=== PATIENT | male | born 1945 | race Caucasian/White ===

== ENCOUNTER 2020-08-29 05:26 | Emergency (ER) | payer MEDICARE ==
[~2020-08-29] VITALS: Ht 180.3 cm; Wt 84.4 kg
== END 2020-08-29 05:41 | disposition home or self-care (01) ==
LOC: ER 05:26
DX: S00.412A Abrasion of left ear, initial encounter (principal); I10 Essential (primary) hypertension; Z88.8 Allergy status to other drugs, medicaments and biological substances; Z88.0 Allergy status to penicillin; W45.8XXA Other foreign body or object entering through skin, initial encounter; Y93.H2 Activity, gardening and landscaping
CPT/HCPCS: 99282

== ENCOUNTER 2021-07-16 12:54 | Emergency (ER) | payer MEDICARE ==
[~2021-07-16] VITALS: Ht 180.3 cm; Wt 79.4 kg
[2021-07-16] MEDS ORDERED: LIDO700A20 TOP (15:40)
[2021-07-16] MEDS ORDERED: IBUP800 PO (15:40)
[2021-07-16] MEDS ORDERED: Robaxin750 MG PO (15:40)
[2021-07-16] MEDS ORDERED: Acetaminophen500 MG PO (15:40)
[2021-07-16] MEDS ORDERED: CELEBREX200 MG PO (15:56)
[2021-07-16] MEDS ORDERED: OMEPRAZOLE CAP 20M (15:57)
[2021-07-16] MEDS ORDERED: Simvastatin10 MG PO (15:57)
[2021-07-16] MEDS ORDERED: OMEGA-3 FISH O1 EA13 PO (15:57)
== END 2021-07-16 15:59 | disposition home or self-care (01) ==
LOC: ER 12:54
DX: M75.42 Impingement syndrome of left shoulder (principal); M19.012 Primary osteoarthritis, left shoulder; I10 Essential (primary) hypertension; Z88.0 Allergy status to penicillin; Z88.8 Allergy status to other drugs, medicaments and biological substances
CPT/HCPCS: 73030; 96372; 99283-25; A9270; J1885

== ENCOUNTER 2025-01-17 12:03 | Emergency (ER) | payer MEDICARE ==
[~2025-01-17] VITALS: Ht 180.3 cm; Wt 83.9 kg
[~2025-01-17 12:03] MED LIST: ACET325 PO; ASPI81CH PO; ATOR80 PO; Acetaminophen500 MG PO; CARV25 PO; CELEBREX200 MG PO; IBUP800 PO; LIDO700A20 TOP; NITR.4SL SL; OMEGA-3 FISH O1 EAC6 PO; OMEP20ER PO; Prinivil10 MG PO; Robaxin750 MG PO; TICA90TA PO
[2025-01-17 12:31] LABS: BASOPHILS ABSOLUTE AUTO 0.05 K/mm3 (0.00-0.23); BASOPHILS PERCENT AUTO 0 % (0-2); EOSINOPHILS ABSOLUTE AUTO 0.03 K/mm3 (0.00-0.68); EOSINOPHILS PERCENT AUTO 0 % (0-6); Hematocrit 34.9 % (37.0-53.0); Hemoglobin 12.1 g/dL (13.5-17.5); IMMATURE GRAN ABSOLUTE AUTO 0.06 K/mm3 (0.00-0.10); IMMATURE GRAN PERCENT AUTO 1 % (0-1); LYMPHOCYTES ABSOLUTE AUTO 0.89 K/mm3 (0.84-5.20); LYMPHOCYTES PERCENT AUTO 7 % (21-46); MONOCYTES ABSOLUTE AUTO 1.69 K/mm3 (0.16-1.47); MONOCYTES PERCENT AUTO 13 % (4-13); Mean Corpuscular HGB 30.9 pg (26.0-34.0); Mean Corpuscular HGB Conc 34.7 g/dL (31.5-36.5); Mean Corpuscular Volume 89 fL (80-100); NEUTROPHILS PERCENT AUTO 78 % (41-73); Platelet Count 554 K/mm3 (150-400); RDW Coefficient Variation 12.3 % (11.7-14.2); Red Blood Cell Count 3.92 M/mm3 (4.30-5.90); White Blood Cell Count 12.62 K/mm3 (4.00-11.30)
[2025-01-17 13:00] LABS: Albumin, Blood 2.8 g/dL (3.4-5.0); Albumin/Globulin Ratio 0.7 (0.8-1.8); Bilirubin, Total 0.9 mg/dL (0.1-1.0); Calcium, Blood 9.1 mg/dL (8.5-10.1); Creatinine, Blood 0.84 mg/dL (0.60-1.20); Potassium, Blood 3.8 mmol/L (3.5-5.5); Total Protein, Blood 6.8 g/dL (6.4-8.2)
[2025-01-17] MEDS ORDERED: FURO20 PO (17:44)
[2025-01-17] MEDS ORDERED: Furosemide 10 MG / ML 2ML Vial IV ONE (17:45)
[2025-01-17 18:02] VITALS: BP 136/90
== END 2025-01-17 18:03 | disposition home or self-care (01) ==
LOC: ER 12:03
PROVIDERS: Emergency Medicine
DX: R07.9 Chest pain, unspecified (principal); R06.00 Dyspnea, unspecified; I10 Essential (primary) hypertension; E78.5 Hyperlipidemia, unspecified; I25.2 Old myocardial infarction; Z85.46 Personal history of malignant neoplasm of prostate; Z87.891 Personal history of nicotine dependence; Z88.0 Allergy status to penicillin; Z88.8 Allergy status to other drugs, medicaments and biological substances; Z79.82 Long term (current) use of aspirin; Z79.899 Other long term (current) drug therapy
CPT/HCPCS: 71046; 80053; 84484; 85025; 93005; 93010; 96374; 99285-25; J1940

== ENCOUNTER 2025-02-20 03:58 | Emergency (ER) | payer MEDICARE ==
[~2025-02-20] VITALS: Ht 180.3 cm; Wt 86.2 kg
[~2025-02-20 03:58] MED LIST changes: +FURO20 PO
[2025-02-20] MEDS ORDERED: Aspirin 81 MG Chew PO ONE (04:30)
[2025-02-20 04:39] LABS: BASOPHILS ABSOLUTE AUTO 0.04 K/mm3 (0.00-0.23); BASOPHILS PERCENT AUTO 1 % (0-2); EOSINOPHILS ABSOLUTE AUTO 0.12 K/mm3 (0.00-0.68); EOSINOPHILS PERCENT AUTO 1 % (0-6); Hematocrit 41.8 % (37.0-53.0); Hemoglobin 14.1 g/dL (13.5-17.5); IMMATURE GRAN ABSOLUTE AUTO 0.07 K/mm3 (0.00-0.10); IMMATURE GRAN PERCENT AUTO 1 % (0-1); LYMPHOCYTES ABSOLUTE AUTO 0.51 K/mm3 (0.84-5.20); LYMPHOCYTES PERCENT AUTO 6 % (21-46); MONOCYTES ABSOLUTE AUTO 0.77 K/mm3 (0.16-1.47); MONOCYTES PERCENT AUTO 9 % (4-13); Mean Corpuscular HGB 29.7 pg (26.0-34.0); Mean Corpuscular HGB Conc 33.7 g/dL (31.5-36.5); Mean Corpuscular Volume 88 fL (80-100); Mean Platelet Volume 8.6 fL (9.1-12.4); NEUTROPHILS ABSOLUTE AUTO 7.14 K/mm3 (1.96-9.15); NEUTROPHILS PERCENT AUTO 83 % (41-73); Platelet Count 296 K/mm3 (150-400); RDW Coefficient Variation 14.9 % (11.7-14.2); RDW Standard Deviation 48.5 fL (35.1-46.3); Red Blood Cell Count 4.74 M/mm3 (4.30-5.90); White Blood Cell Count 8.65 K/mm3 (4.00-11.30)
[2025-02-20 04:58] LABS: Albumin, Blood 3.7 g/dL (3.4-5.0); Albumin/Globulin Ratio 0.9 (0.8-1.8); Bun/Creatinine Ratio 27.7 (12.0-20.0); Creatinine, Blood 0.79 mg/dL (0.60-1.20); Globulin, Blood 3.9 g/dL (2.2-4.0); Potassium, Blood 3.5 mmol/L (3.5-5.5); Total Protein, Blood 7.6 g/dL (6.4-8.2)
[2025-02-20 05:09] LABS: Prothrombin Time Results 10.7 Sec (9.7-11.5)
[2025-02-20] MEDS ORDERED: Ondansetron HCl 2 MG / ML 2ML Vial IV ONE (06:55)
[2025-02-20] MEDS ORDERED: Morphine Sulfate 4 MG/1 ML Injection IV ONE (06:55)
[2025-02-20 13:55] VITALS: BP 139/81
== END 2025-02-20 14:01 | disposition home or self-care (01) ==
LOC: ER 03:58
PROVIDERS: Student in an Organized Health Care Education/Training Program
DX: R07.89 Other chest pain (principal); R79.89 Other specified abnormal findings of blood chemistry; R10.13 Epigastric pain; I10 Essential (primary) hypertension; E78.5 Hyperlipidemia, unspecified; K21.9 Gastro-esophageal reflux disease without esophagitis; I25.2 Old myocardial infarction; Z95.5 Presence of coronary angioplasty implant and graft; Z87.891 Personal history of nicotine dependence; Z88.0 Allergy status to penicillin; Z88.8 Allergy status to other drugs, medicaments and biological substances; Z79.82 Long term (current) use of aspirin; Z79.899 Other long term (current) drug therapy; Z59.89 Other problems related to housing and economic circumstances
CPT/HCPCS: 71045; 74177; 74181; 76705; 80053; 83690; 84484; 85025; 85610; 85730; 93005; 93010; 96374-59; 96375; 99285-25; A9270; J2270; J2405; Q9967